=== PATIENT | male | born 1935 | race Hispanic/Latino ===

== ENCOUNTER → 2020-02-28 | Outpatient (CLI) | payer OTHER ==
[~2020-02-28] MED LIST: ASPI-1005 PO; FAMO20TA8 PO; LISI10TA7 PO; METO50TA18 PO; PRAV40TA3 PO
== END | disposition home or self-care (01) ==
LOC: RAH 09:23
PROVIDERS: ATTEND Family Medicine
DX: M79.605 Pain in left leg (principal)
CPT/HCPCS: 93971